=== PATIENT | female | born 1990 | race Hispanic/Latino ===

== ENCOUNTER 2017-01-24 18:39 | Emergency (ER) | payer MEDICARE ==
[~2017-01-24] VITALS: Ht 162.6 cm; Wt 74.8 kg
[~2017-01-24 18:39] MED LIST: ATENOLOL25 MG; LEVOTHYROXINE112 MCG PO
== END 2017-01-24 21:37 | disposition short-term general hospital (02) ==
LOC: ER 18:39
DX: O26.891 Other specified pregnancy related conditions, first trimester (principal)

== ENCOUNTER 2017-04-02 18:03 | Emergency (ER) | payer MEDICARE, OTHER ==
[~2017-04-02] VITALS: Ht 162.6 cm; Wt 83.9 kg
[2017-04-02 19:53] VITALS: BP 154/84
== END 2017-04-02 19:54 | disposition home or self-care (01) ==
LOC: ER 18:03
DX: G44.89 Other headache syndrome (principal); E05.00 Thyrotoxicosis with diffuse goiter without thyrotoxic crisis or storm; Z33.1 Pregnant state, incidental
CPT/HCPCS: 99283

== ENCOUNTER 2017-12-06 01:09 | Emergency (ER) | payer BC, OTHER ==
[~2017-12-06] VITALS: Ht 162.6 cm; Wt 83.9 kg
[2017-12-06] MEDS ORDERED: PANTOPRAZOLE 40 MG 10ML VIAL IV STA (01:40)
[2017-12-06] MEDS ORDERED: DONNATAL/LIDOCAINE/MAALOX 30 ML SUSP PO SCH (01:45)
[2017-12-06] MEDS ORDERED: BELLADONNA ALK/PHENOBARBITAL 5 ML UDC ONE (01:49)
[2017-12-06] MEDS ORDERED: LIDOCAINE VISC 2% SOLN 15 ML UDC ONE (01:49)
[2017-12-06] MEDS ORDERED: MAGNESIUM/ALUMINUM/SIMETHICONE 30 ML UDC ONE (01:49)
[2017-12-06] MEDS ORDERED: PANTOPRAZOLE 40 MG 10ML VIAL ONE (01:50)
[2017-12-06 01:59] LABS: BASOPHILS # (AUTO) 0.1 (0.0-0.1); BASOPHILS % 0.8 % (0.0-1.0); EOSINOPHILS # (AUTO) 0.2 (0.0-0.4); HEMATOCRIT 39.4 % (34.2-44.1); HEMOGLOBIN 13.8 g/dL (12.0-16.0); LYMPHOCYTES # (AUTO) 2.1 (1.0-3.2); LYMPHOCYTES % 26.3 % (18.0-39.1); MEAN CORPUSCULAR HEMOGLOBIN 29.9 pg (28-32); MEAN CORPUSCULAR VOLUME 85.3 fL (81-99); MONOCYTES # (AUTO) 0.5 (0.2-0.8); MONOCYTES % 5.6 % (4.4-11.3); NEUTROPHILS # (AUTO) 5.1 (2.1-6.9); NEUTROPHILS % 63.9 % (38.7-80.0); PLATELET COUNT 244 x10e3/uL (140-360); RED BLOOD COUNT 4.62 x10e6/uL (3.6-5.1); RED CELL DISTRIBUTION WIDTH 11.9 % (11.7-14.4)
[2017-12-06 02:16] LABS: ALANINE AMINOTRANSFERASE 31 IU/L (0-55); ALBUMIN/GLOBULIN RATIO 1.1 (0.8-2.0); ALKALINE PHOSPHATASE 116 IU/L (40-150); ANION GAP 11.6 mmol/L (8-16); BLOOD UREA NITROGEN 16 mg/dL (7-26); BUN/CREATININE RATIO 24 (6-25); CALCIUM 9.7 mg/dL (8.4-10.2); CARBON DIOXIDE 24 mmol/L (22-29); CHLORIDE 101 mmol/L (98-107); CREATININE, SERUM 0.68 mg/dL (0.57-1.11); EST GLOMERULAR FILTRATION RATE > 60 ML/MIN (60-); GLUCOSE 112 mg/dL (74-118); POTASSIUM 3.6 mmol/L (3.5-5.1); SODIUM 133 mmol/L (136-145)
[2017-12-06 02:23] LABS: CLARITY,URINE CLOUDY (CLEAR); COLOR,URINE YELLOW (YELLOW); LEUKOCYTE ESTERASE ,URINE NEGATIVE (NEGATIVE); NITRITE,URINE POSITIVE (NEGATIVE); PROTEIN,URINE DIPSTICK NEGATIVE (NEGATIVE)
[2017-12-06 02:24] LABS: BILIRUBIN,URINE NEGATIVE (NEGATIVE); KETONES,URINE NEGATIVE (NEGATIVE); URINE UROBILINOGEN 0.2 mg/dL (0.2 - 1)
[2017-12-06] MEDS ORDERED: ZANTAC 7575 MG PO (02:47)
[2017-12-06 02:49] LABS: BACTERIA,URINE MANY /HPF
[2017-12-06 02:50] LABS: EPITHELIAL CELLS,URINE FEW /LPF
[2017-12-12] MEDS ORDERED: LEVOTHYROXINE175 MCG PO (16:34)
== END 2017-12-06 02:52 | disposition home or self-care (01) ==
LOC: ER 01:22
DX: R10.11 Right upper quadrant pain (principal); R10.13 Epigastric pain; K29.00 Acute gastritis without bleeding; K21.9 Gastro-esophageal reflux disease without esophagitis
CPT/HCPCS: 36415; 80053; 81001; 85025; 93005; 99283

== ENCOUNTER → 2017-12-13 | Day surgery (SDC) | payer BC, OTHER ==
[2017-12-12 16:46] LABS: BASOPHILS # (AUTO) 0.1 (0.0-0.1); BASOPHILS % 0.7 % (0.0-1.0); EOSINOPHILS # (AUTO) 0.3 (0.0-0.4); EOSINOPHILS % 3.4 % (0.0-6.0); HEMOGLOBIN 13.2 g/dL (12.0-16.0); LYMPHOCYTES # (AUTO) 2.1 (1.0-3.2); LYMPHOCYTES % 24.3 % (18.0-39.1); MEAN CORPUSCULAR HEMOGLOBIN 29.9 pg (28-32); MEAN CORPUSCULAR HGB CONC 34.7 g/dL (31-35); MEAN CORPUSCULAR VOLUME 86.2 fL (81-99); MONOCYTES # (AUTO) 0.5 (0.2-0.8); MONOCYTES % 6.3 % (4.4-11.3); NEUTROPHILS # (AUTO) 5.5 (2.1-6.9); NEUTROPHILS % 64.9 % (38.7-80.0); PLATELET COUNT 270 x10e3/uL (140-360); RED BLOOD COUNT 4.41 x10e6/uL (3.6-5.1); RED CELL DISTRIBUTION WIDTH 11.9 % (11.7-14.4)
[~2017-12-13] MED LIST changes: +ACETAMINOPHEN/CODEINE 300MG - 30MG TAB ONE; +BUPIVACAINE 0.25%/EPI 30ML SDV INJ ONE; +DEXAMETHASONE SOD PHOS INJ 4 MG/ML VIAL ONE; +FENTANYL CITRATE/PF 100MCG/2 ML INJ ONE; +KETOROLAC TROMETHAMINE 30 MG/ML VIAL ONE; +LEVOTHYROXINE175 MCG PO; +LIDOCAINE HCL 2% LOCAL INJ 5 ML SDV VIAL INJ ONE; +MEPERIDINE HCL INJ 50 MG/ML INJ ONE; +MIDAZOLAM HCL 2 MG/2 ML VIAL ONE; +ONDANSETRON HCL INJ 2 MG/ML VIAL ONE; +PROPOFOL IV EMULSION 10 MG/ML 20 ML VIAL ONE; +ROCURONIUM BROMIDE 10 MG/ML 5ML VIAL ONE; +SEVOFLURANE INHAL SOLN 250 ML PEN BTL ONE; +ZANTAC 7575 MG PO
[2017-12-13 16:45] VITALS: BP 128/85
--- NOTE | 2017-12-24 17:05 | Operative Report ---
DATE OF PROCEDURE: PREOPERATIVE DIAGNOSIS: Requesting sterilization. POSTOPERATIVE DIAGNOSIS: Requesting sterilization. PROCEDURE: Laparoscopic bilateral tubal ligation. COMPLICATIONS: None. ESTIMATED BLOOD LOSS: Minimal. The patient was taken to the OR and anesthesia was placed. She was prepped and draped in the normal sterile fashion. Placed in the dorsal lithotomy position. Rondon catheter was used to empty the bladder. The Hulka self-retaining uterine manipulator was passed through the cervix into the uterine cavity. Two Allis clamps were applied at the umbilicus. At the umbilicus, an infraumbilical skin incision was made with the scalpel. Subcutaneous tissue was dissected with a hemostat. A 5 mm bladeless trocar and cannula with the scope inside was passed through the abdominal wall to the abdominal cavity. Trocar was removed and the scope was inserted through the sleeve and into the abdominal cavity. Abdomen was insufflated with carbon dioxide gas. The patient was placed in Trendelenburg position. Good visualization of the pelvis showed the following: Normal looking uterus, tubes and ovaries. Another 8-mm port was made in the right lower quadrant after making an 8 mm skin incision with the scalpel. An 8 mm bladeless trocar and cannula was passed through the abdominal wound to the abdominal cavity under direct visualization. Trocar was removed. Using the Fulci clip applicator, 2 clips were applied across the tubes to block the tubes. The upper abdomen was grossly normal. Instruments were removed from the abdomen. The abdomen was deflated. The skin was closed with Dermabond. The patient tolerated the procedure well. Lap, needle and sponge counts were correct times 2 at the end of the procedure. Job#: [id number]
== END | disposition home or self-care (01) ==
LOC: OR 10:30
PROVIDERS: ATTEND Obstetrics & Gynecology
DX: Z30.2 Encounter for sterilization (principal); E03.9 Hypothyroidism, unspecified; Z01.812 Encounter for preprocedural laboratory examination
CPT/HCPCS: 36415; 58671; 84702; 85025; J1100; J1885; J2001; J2175; J2250; J2405; J2704

== ENCOUNTER 2022-03-07 08:21 | Emergency (ER) | payer SELFPAY ==
[~2022-03-07] VITALS: Ht 162.6 cm; Wt 83.9 kg
[~2022-03-07 08:21] MED LIST changes: -ACETAMINOPHEN/CODEINE 300MG - 30MG TAB ONE; -BUPIVACAINE 0.25%/EPI 30ML SDV INJ ONE; -DEXAMETHASONE SOD PHOS INJ 4 MG/ML VIAL ONE; -FENTANYL CITRATE/PF 100MCG/2 ML INJ ONE; -KETOROLAC TROMETHAMINE 30 MG/ML VIAL ONE; -LIDOCAINE HCL 2% LOCAL INJ 5 ML SDV VIAL INJ ONE; -MEPERIDINE HCL INJ 50 MG/ML INJ ONE; -MIDAZOLAM HCL 2 MG/2 ML VIAL ONE; -ONDANSETRON HCL INJ 2 MG/ML VIAL ONE; -PROPOFOL IV EMULSION 10 MG/ML 20 ML VIAL ONE; -ROCURONIUM BROMIDE 10 MG/ML 5ML VIAL ONE; -SEVOFLURANE INHAL SOLN 250 ML PEN BTL ONE
[2022-03-07 09:42] LABS: CLARITY,URINE CLEAR (CLEAR); COLOR,URINE YELLOW (YELLOW); KETONES,URINE NEGATIVE (NEGATIVE); LEUKOCYTE ESTERASE ,URINE SMALL (NEGATIVE); NITRITE,URINE NEGATIVE (NEGATIVE); PROTEIN,URINE DIPSTICK 1+ (NEGATIVE); URINE UROBILINOGEN 0.2 mg/dL (0.2 - 1)
[2022-03-07 09:52] LABS: BACTERIA,URINE MANY /HPF; EPITHELIAL CELLS,URINE MODERATE /LPF; WBC,URINE (MAN) >50 /HPF (0-5)
[2022-03-07] MEDS ORDERED: CEFUROXIME250 MG PO (10:07)
== END 2022-03-07 10:11 | disposition home or self-care (01) ==
LOC: ER 08:29
DX: M54.50 Low back pain, unspecified (principal); N39.0 Urinary tract infection, site not specified; R10.30 Lower abdominal pain, unspecified; E03.9 Hypothyroidism, unspecified
CPT/HCPCS: 81001; 81025; 87086; 87186; 99283